=== PATIENT | male | born 1960 | race Caucasian/White ===

== ENCOUNTER 2018-09-04 06:59 | Day surgery (SDC) | payer MEDICARE, MEDICAID ==
[2018-09-04 07:39] VITALS: BP 124/81; TEMP 97.9
[2018-09-04 07:42] VITALS: BMI 23.5
[2018-09-04] MEDS ORDERED: Iopamidol-M 300 61% 15 ML VIAL ONE (09:42)
--- NOTE | 2018-09-04 09:42 | RAD ---
MYELOGRAM LUMBAR MYELOGRAM CERVICAL: HISTORY: 57-year-old male with chronic low back pain, chronic cervicalgia, and bilateral lumbar and cervical r adiculopathy.. TECHNIQUE: Informed consent was obtained. Preprocedure production editor images were performed for guidance purposes. Site overlying the [id number] space was marked. The site was prepped and draped in the usual s terile fashion. Buffered 1% lidocaine was administered to the overlying subcutaneous tissues. Under fluoroscopic guidance, a 22-gauge spinal needle was guided down into the thecal sac. There was spontaneous return of normal appearing CSF fluid. Following this 11 mL of Isovue-M 300 was injected within the thecal sac. There was fluoroscopic visua lization of internal nerve roots confirming intrathecal location of needle placement. Following this, patient was then placed in Trendelenburg position and contrast was seen fluoroscopica lly to migrate to the level of the cervical spine. The inner stylette was replaced within the needle and the needle removed. Pressure was held at the biopsy site until hemostasis was obtained. Th e biopsy site was then cleansed and bandage. The patient tolerated the injection without difficulty. Total fluoroscopic time was 2.2 minutes. Dose area product was 192.7 uGy*m^2. FINDINGS: ACDF hardware in cervical spine. Bilateral pedicle screws and laminectomy at mid and lower lumbar spi ne. Compression fracture of L1. See separate report of subsequent CT myelograms of cervical and thoracic spine. IMPRESSION: Successful cervical and lumbar myelogram
--- NOTE | 2018-09-04 09:56 | CT ---
CT CERVICAL SPINE WITH CONTRAST (CT CERVICAL MYELOGRAM): DATE: 09/04/2018 HISTORY: 57-year-old male with cervicalgia and bilateral cervical radiculopathy. FINDINGS: Vertebral body heights are maintained. The disc spaces are maintained at C2-3, C3-4, C4-5, and C7-T1. There are anterior metallic plate and screws at C5-6-7. High-grade disc space narrowing at the C5-6 a nd C6-7 disc spaces, where there are tiny metallic markers for interbody cages. These metallic markers have settled into the adjacent endplates, but there are no osseous bridges between the endpla roula across the disc space to indicate any ankylosis. No major subluxation. Cervical spinal cord is normal in caliber. No high-grade degenerative facet changes at any level. C1-2: Essentially normal C2-3: Normal C3-4: Normal C4-5: Mild right neural foraminal stenosis. No left neural foraminal stenosis. No central stenosis. C5-6: Shallow broad-based disc-osteophytic bar complex and minimal retrolisthesis of C5 on C6 almost abut the ventral surface of the spinal cord, causing moderate central spinal canal stenosis. Bilateral moderate sized uncinate process osteophytes result in moderate to severe bilateral neural f oraminal stenosis. C6-7: No significant central stenosis. Bilateral uncinate process osteophytes result in severe right neural foraminal stenosis and moderate to severe left neural foraminal stenosis. C7-T1: Normal. IMPRESSION: 1. Status post anterior cervical discectomy and fusion at C5-6-7. 2. Cervical spondylosis is mild overall. 3. Bilateral neural foraminal stenosis at C5-6 and C6-7.
--- NOTE | 2018-09-04 10:19 | CT ---
CT lumbar spine with contrast: (CT lumbar myelogram) DATE: 09/04/2018 HISTORY: 57-year-old male with chronic low back pain and bilateral lumbar radiculopathy. COMPARISON: 09/28/2015 FINDINGS: There are 5 lumbar-type vertebrae. No scoliosis and no major spondylolisthesis. T11-12: Mild bilateral facet DJD. Otherwise normal. T12-L1: Compression fracture of L1 with depression of superior endplate and anterior wedging, all new since 09/28/2015. Maximum loss of height anteriorly is 50%. There is no loss of height posteriorly. There is sclerosis associated with this. On the left side, fracture lucencies are still present. No p revertebral soft tissue edema or hematoma. No significant bony retropulsion. Conus medullaris terminates at L1. No central or neural foraminal stenosis. L1-2: Normal L2-3: Again noted is the moderately large diffuse disc bulge protruding into the anterior aspect of t he spinal canal, causing central spinal canal stenosis. However, the previously demonstrated midline laminectomy defect is again noted, which alleviates some of this central stenosis. Overall de gree of thecal sac stenosis at this level is mild-moderate. Moderate bilateral neural foraminal stenosis. Mild disc space narrowing. Bilateral L3 pedicle screws with no evidence of loosening or mal positioning. No significant interval change. L3-4: Interbody bone graft cage. Disc space maintained. Successful osseous bridges between the endpla roula across the disc space. Anteriorly placed screw from anterior edge of disc space obliquely into the mid body of L3. No central stenosis and no high-grade neural foraminal stenosis. Successful ankyl osis of bilateral on delay bone grafts involving posterior elements. L4-5: Interbody bone graft cage. Disc space maintained. Successful osseous bridges between the endpla roula across the disc space. Anteriorly placed screw from anterior edge of disc space obliquely into the mid body of L5. No central stenosis and no high-grade neural foraminal stenosis. Successful ankyl osis of bilateral on delay bone grafts involving posterior elements. Bilateral L5 pedicle screws with no evidence of loosening. No interval change. L5-S1: Disc space maintained. Bilateral mild to moderate facet DJD. Bilateral moderate neural foramin al stenosis. No high-grade central stenosis. Mild disc bulge. No significant interval change. IMPRESSION: 1.) Subacute, incompletely healed traumatic compression fracture of L1, which occurred sometime after the previous CT of 09/28/2015. 2) prominent diffuse disc bulge at L2-3 central spinal canal stenosis, partially alleviated by midlin e laminectomy. Overall mild to moderate central spinal canal stenosis at L2-3. 3) no central spinal canal stenosis at any other level. 4) moderate bilateral neural foraminal stenosis at L2-3 and L5-S1. 5) old posterior and anterior lumbar interbody fusion at L3-L4-L5. 6) other than the L1 compression fracture, no other interval change since 09/28/2015.
== END 2018-09-04 10:15 | disposition home or self-care (01) ==
LOC: RAD 06:59
PROVIDERS: ATTEND Neurological Surgery
PROC: B01B1ZZ Fluoroscopy of Spinal Cord using Low Osmolar Contrast (ICD-10-PCS; principal; 2018-09-04)
DX: M48.062 Spinal stenosis, lumbar region with neurogenic claudication (principal); M48.02 Spinal stenosis, cervical region; M47.22 Other spondylosis with radiculopathy, cervical region; M47.27 Other spondylosis with radiculopathy, lumbosacral region; M48.07 Spinal stenosis, lumbosacral region; F41.9 Anxiety disorder, unspecified; K21.9 Gastro-esophageal reflux disease without esophagitis; I10 Essential (primary) hypertension; Z88.8 Allergy status to other drugs, medicaments and biological substances
CPT/HCPCS: 62305; 72126; 72132; Q9967